=== PATIENT | female | born 1975 | race African-American/Black ===

== ENCOUNTER 2025-01-24 14:33 | Emergency (ER) | payer OTHER ==
[~2025-01-24] VITALS: Ht 152.4 cm; Wt 97.7 kg
[~2025-01-24 14:33] MED LIST: AMLO10TA80 PO; ASPI-1406 PO; FAMO20TA8 PO; HYDR25TA MT; ISOS-51 MT
[2025-01-24 14:40] VITALS: O2SAT 97
[2025-01-24 16:51] VITALS: BP 155/101; PULSE 97; RESP 16; TEMP 37.1; O2SAT 100
== END 2025-01-24 17:00 | disposition left against medical advice (07) ==
LOC: ER 14:33
DX: R07.9 Chest pain, unspecified (principal); Z53.21 Procedure and treatment not carried out due to patient leaving prior to being seen by health care provider